=== PATIENT | female | born 1960 | race Caucasian/White ===

== ENCOUNTER 2022-10-23 16:49 | Observation (INO) | payer BC ==
[2022-10-23] MEDS ORDERED: Sodium Chloride 0.9% 10 ML Syringe FLUSH PRN (17:23)
[2022-10-23] MEDS ORDERED: Ondansetron 4 MG/2 ML SDV IVPUSH ONE (17:25)
[2022-10-23] MEDS ORDERED: fentaNYL 100 MCG/2 ML SDV IVPUSH ONE (17:25)
[2022-10-23] MEDS ORDERED: Lactated Ringers 1,000 ML IV SCH (17:30)
[2022-10-23 17:41] LABS: ESTIMATED GFR 101 mL/min (>60)
[2022-10-23] MEDS ORDERED: Sodium Chloride 0.9% 75 ML IV SCH (17:45)
[2022-10-23] MEDS ORDERED: Iopamidol 612 MG/ML 100 ML Bottle IV SCH (17:45)
[2022-10-23] MEDS ORDERED: Ertapenem 1 GM in Sodium Chloride 0.9% 50 ML IV SCH (19:45)
[2022-10-23] MEDS ORDERED: fentaNYL 50 MCG/ML SDV IVPUSH STA (20:03)
[2022-10-23 20:25] LABS: CORONAVIRUS COVID-19 NAA NEGATIVE (NEGATIVE)
[2022-10-23] MEDS ORDERED: Magnesium Hydroxide 400 MG/5 ML Susp 30 ML Cup PO PRN (20:43)
[2022-10-23] MEDS ORDERED: Melatonin 3 MG Tab PO PRN (20:43)
[2022-10-23] MEDS ORDERED: Sodium Chloride 0.9% 1,000 ML IV SCH (20:43)
[2022-10-23] MEDS ORDERED: Ondansetron 4 MG/2 ML SDV IV PRN (20:43)
[2022-10-23] MEDS ORDERED: Acetaminophen 325 MG Tab PO PRN (20:43)
[2022-10-23] MEDS ORDERED: Ondansetron 4 MG Tab.DIS PO PRN (20:43)
[2022-10-23] MEDS ORDERED: Potassium Chloride 20 MEQ Tab.ER PO ONE (21:00)
[2022-10-23] MEDS ORDERED: Pantoprazole 40 MG Tab.CR PO ONE ×2 (21:00)
[2022-10-23] MEDS ORDERED: atorvaSTATin 20 MG Tab PO SCH (21:00)
[2022-10-23] MEDS: fentaNYL 100 MCG/2 ML SDV IVPUSH PRN (22:27)
[2022-10-24] MEDS: fentaNYL 100 MCG/2 ML SDV IVPUSH PRN (04:30)
[2022-10-24] MEDS ORDERED: Lidocaine 1% with EPINEPHrine 1:100,000 50 ML MDV ONE (06:41)
[2022-10-24] MEDS ORDERED: Bupivacaine 0.5% 50 ML MDV ONE (06:41)
[2022-10-24] MEDS ORDERED: Meropenem 500 MG in Sodium Chloride 0.9% 50 ML IV ONE (08:00)
[2022-10-24] MEDS ORDERED: Ketamine 500 MG/5 ML MDV IV SCH (08:00)
[2022-10-24] MEDS ORDERED: Ropivacaine 30 ML, dexAMETHasone 8 MG, EPINEPHrine 0.4 MG, Sodium Chloride 0.9% 47.6 ML NERVRT SCH ×4 (08:00)
[2022-10-24] MEDS ORDERED: Ketamine 18 MG in Sodium Chloride 0.9% 19.82 ML IV SCH (08:00)
[2022-10-24] MEDS ORDERED: fentaNYL 250 MCG/5 ML SDV ONE (08:18)
[2022-10-24] MEDS ORDERED: Neostigmine Methylsulfate 1 MG/ML 5 ML Syringe ONE (08:19)
[2022-10-24] MEDS ORDERED: Succinylcholine 200 MG/10 ML MDV ONE (08:19)
[2022-10-24] MEDS ORDERED: Propofol 200 MG/20 ML SDV ONE (08:19)
[2022-10-24] MEDS ORDERED: Dexamethasone 4 MG/ML SDV ONE (08:19)
[2022-10-24] MEDS ORDERED: Glycopyrrolate 0.2 MG/ML 5 ML MDV ONE (08:19)
[2022-10-24] MEDS ORDERED: Rocuronium 50 MG/5 ML Vial ONE (08:19)
[2022-10-24] MEDS ORDERED: Ondansetron 4 MG/2 ML SDV ONE (08:19)
[2022-10-24] MEDS ORDERED: ePHEDrine 50 MG/ML SDV ONE (08:41)
[2022-10-24] MEDS ORDERED: Lactated Ringers 1,000 ML ONE (08:47)
[2022-10-24] MEDS ORDERED: Lactulose Soln 10 GM/15 ML 15 ML UD Cup PO SCH (09:00)
[2022-10-24] MEDS ORDERED: Sugammadex Sodium 200 MG/2 ML VIAL ONE (09:12)
[2022-10-24] MEDS ORDERED: HYDROmorphone 0.5 MG/0.5 ML Syringe IVPUSH PRN (10:19)
[2022-10-24] MEDS ORDERED: HYDROmorphone 1 MG/ML Syringe IV PRN (10:20)
[2022-10-24] MEDS ORDERED: hydrOXYzine HCl 50 MG/ML SDV IM PRN (10:35)
[2022-10-24] MEDS: HYDROmorphone 2 MG Tab PO PRN ×3 (11:16→21:03)
[2022-10-24] MEDS: Ondansetron 4 MG/2 ML SDV IVPUSH PRN ×2 (13:31→20:02)
[2022-10-24] MEDS: Dextrose 5%-Lactated Ringers 1,000 ML IV SCH (14:28)
[2022-10-24] MEDS: Meropenem 500 MG in Sodium Chloride 0.9% 50 ML IV SCH ×2 (14:29→20:09)
[2022-10-24] MEDS: Acetaminophen 500 MG Tab PO SCH ×2 (14:30→20:08)
[2022-10-24] MEDS ORDERED: Celecoxib 200 MG Cap PO SCH (21:00)
[2022-10-25] MEDS: Acetaminophen 500 MG Tab PO SCH ×2 (01:16→07:46)
[2022-10-25] MEDS: Dextrose 5%-Lactated Ringers 1,000 ML IV SCH (01:20)
[2022-10-25] MEDS: Meropenem 500 MG in Sodium Chloride 0.9% 50 ML IV SCH ×2 (02:59→07:42)
[2022-10-25] MEDS ORDERED: traMADol 50 MG Tab PO PRN (07:39)
[2022-10-25] MEDS ORDERED: Ondansetron 4 MG Tab.DIS PO PRN (07:40)
[2022-10-25] MEDS ORDERED: Cyclobenzaprine 10 MG Tab PO PRN (07:40)
[2022-10-25] MEDS ORDERED: Ibuprofen 600 MG Tab PO PRN (07:41)
[2022-10-25] MEDS ORDERED: Amoxicillin/Clavulanate K 875-125 MG Tab PO SCH (09:00)
[2022-10-25] MEDS ORDERED: Scopolamine 1.5 MG Transdermal Patch TRDERM PRN (09:00)
[2022-10-25] MEDS ORDERED: Levofloxacin 500 MG Tab PO SCH (09:00)
[2022-10-25] MEDS ORDERED: Docusate Sodium 100 MG Cap PO SCH (09:00)
[2022-10-25] MEDS ORDERED: Enoxaparin 40 MG/0.4 ML Syringe SUBCUT SCH (14:00)
== END 2022-10-25 10:41 | disposition home or self-care (01) ==
LOC: JP.ED 16:49 → MERGE 20:04 → JP.MS 20:04
PROVIDERS: ADMIT Surgery; ATTEND Surgery
DX: K35.33 Acute appendicitis with perforation, localized peritonitis, and gangrene, with abscess (principal); E87.6 Hypokalemia; K51.90 Ulcerative colitis, unspecified, without complications; E78.00 Pure hypercholesterolemia, unspecified; K21.9 Gastro-esophageal reflux disease without esophagitis; Z88.1 Allergy status to other antibiotic agents; Z88.8 Allergy status to other drugs, medicaments and biological substances; Z79.899 Other long term (current) drug therapy; Z20.822 Contact with and (suspected) exposure to COVID-19
CPT/HCPCS: 0241U; 36415; 44970; 74177; 80048; 80053; 81001; 83605; 83690; 83735; 85025; 85027; 87070; 87075; 87205; 88304; 93005; 96361; 96374; 96375; 96376; 99285; A9270; G0378; J0131; J0171; J0330; J1100; J1170; J1335; J2185; J2405; J2704; J2710; J2795; J3010; J3490; J7030; J7120; J7121; Q0162; Q9967; 99284